=== PATIENT | female | born 1980 | race American Indian/Alaskan Native ===

== ENCOUNTER 2019-03-18 16:02 | Emergency (ER) | payer OTHER ==
--- NOTE | 2019-03-18 16:24 | Event Note ---
ED Screening Note Date of service: 03/18/19 Time: 16:22 ED Screening Note: 38 y o female presents to ED cc of depression and no appetite vaginal bleed only 3 days unsure if cycle pmh of post depression states under a lot of stress This initial assessment/diagnostic orders/clinical plan/treatment(s) is/are subject to change based on patients health status, clinical progression and re- assessment by fellow clinical providers in the ED. Further treatment and workup at subsequent clinical providers discretion. Patient/guardian urged not to elope from the ED as their condition may be serious if not clinically assessed and managed. Initial orders include:
[2019-03-18 18:13] LABS: Bilirubin,Urine NEG (Negative); Blood,Urine NEG (Negative); Color,Urine Straw (Yellow); Protein,Urine <15 mg/dL mg/dL (Negative); Urobilinogen,Urine < 2.0 mg/dL (<2.0); WBC,Urine < 1.0 /HPF (0.0-6.0)
[2019-03-18 18:14] LABS: Amphetamine Screen,Urine PRESUMPTIVE NEGATIVE; Benzodiazepines Screen,Urine PRESUMPTIVE NEGATIVE; Cannabinoid Screen,Urine PRESUMPTIVE NEGATIVE; Cocaine Screen,Urine PRESUMPTIVE NEGATIVE; Methadone Screen,Urine PRESUMPTIVE NEGATIVE; Opiate Screen,Urine PRESUMPTIVE NEGATIVE
[2019-03-18 18:16] LABS: HCG Qualitative,Urine Negative (Negative)
[2019-03-18 18:30] VITALS: BP 126/80
[2019-03-18 19:16] LABS: Basophils % (Auto) 0.7 % (0.0-1.8); Eosinophils % (Auto) 0.3 % (0.0-4.3); Hematocrit 33.6 % (30.3-42.9); Hemoglobin 10.9 gm/dl (10.1-14.3); Lymphocytes # (Auto) 0.7 K/mm3 (1.2-5.4); Lymphocytes % (Auto) 21.9 % (13.4-35.0); Mean Corpuscular HGB Conc 33 % (30-34); Mean Corpuscular Volume 83 fl (79-97); Monocytes # (Auto) 0.2 K/mm3 (0.0-0.8); Monocytes % (Auto) 5.7 % (0.0-7.3); Platelet Count 208 K/mm3 (140-440); Red Blood Count 4.03 M/mm3 (3.65-5.03); Red Cell Distribution Width 19.9 % (13.2-15.2)
[2019-03-18 19:22] LABS: BUN/Creatinine Ratio 13; Blood Urea Nitrogen 10 mg/dL (7-17); Calcium 9.8 mg/dL (8.4-10.2); Hemolysis Index 14
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
[2019-03-19] MEDS ORDERED: ONDANSETRON 4 MG/2 ML INJ ONE (13:47)
[2019-03-19] MEDS ORDERED: LORazepam 2 MG/ML VIAL ONE (14:07)
== END 2019-03-18 19:58 | disposition home or self-care (01) ==
LOC: ED 16:02
DX: F32.9 Major depressive disorder, single episode, unspecified (principal); R63.0 Anorexia; R11.0 Nausea; F17.200 Nicotine dependence, unspecified, uncomplicated; Z79.899 Other long term (current) drug therapy; Z88.8 Allergy status to other drugs, medicaments and biological substances
CPT/HCPCS: 36415; 80048; 80307; 80320; 81001; 81025; 85025; G0480; J2060; J2405

== ENCOUNTER 2020-03-19 11:02 | Emergency (ER) | payer SELFPAY ==
--- NOTE | 2020-03-19 11:12 | Emergency Department Report ---
Blank Doc - Documentation Documentation: 39-year-old female that presents with decreased appetite, dizziness, and gener alized weakness. This initial assessment/diagnostic orders/clinical plan/treatment(s) is/are subject to change based on patient's health status, clinical progression and re- assessment by fellow clinical providers in the ED. Further treatment and workup at subsequent clinical providers discretion. Patient/guardians urged not to elope from the ED as their condition may be serious if not clinically assessed and managed. Initial orders include: 1- Patient sent to [facility] for further evaluation and treatment 2- labs 3- UA
[2020-03-19 11:13] VITALS: BP 113/56
[2020-03-19] MEDS ORDERED: IBUPROFEN 800 MG TAB PO ONE (12:20)
--- NOTE | 2020-03-19 12:22 | Emergency Department Report ---
ED General Adult HPI - General Chief complaint: Weakness Stated complaint: DEHYDRATED PUI?: No Time Seen by Provider: 03/19/20 11:11 Source: patient Mode of arrival: Ambulatory Limitations: No Limitations - History of Present Illness Initial comments: Patient is a 39-year-old -[place] female who comes to the ER today com plaining of loss of appetite for 4 days and feeling dehydrated. She says she has been working a lot and has had to call out of work for the last 3 days. She states that she is not sleeping well. She denies any depression. She denies HI or SI. She is on no home medications and has no primary care doctor. On initial exam patient is emphatic that she needs IV fluids. However she does not have any tachycardia or hypotension. She has no fever or chills. She denies cough. She denies exposure to COVID-19. Patient repeatedly states that she wants IV fluids. However, she refuses to give urine or to allow phlebotomy to draw her labs. She states usually when I come in I just get IV fluids and leave. - Related Data Previous Rx's Medication Instructions Recorded Last Taken Type Acyclovir [Zovirax Cap] 200 mg PO 5XD 10 Days cap 05/05/13 Unknown Rx Ondansetron [Zofran Odt] 4 mg PO Q8HR PRN #14 tab.rapdis 03/18/19 Unknown Rx Allergies Allergy/AdvReac Type Severity Reaction Status Date / Time medroxyprogesterone acetate Allergy Rash Verified 03/19/20 11:09 [From Depo-Provera] ED Review of Systems ROS: Stated complaint: DEHYDRATED Other details as noted in HPI Comment: All other systems reviewed and negative ED Past Medical Hx - Past Medical History Previous Medical History?: Yes Additional medical history: PRE DIABETIC - Surgical History Past Surgical History?: Yes Additional Surgical History: C section - Family History Family history: no significant - Social History Smoking Status: Current Every Day Smoker Substance Use Type: None - Medications Home Medications: Home Medications Medication Instructions Recorded Confirmed Last Taken Type Acyclovir [Zovirax Cap] 200 mg PO 5XD 10 Days cap 05/05/13 03/18/19 Unknown Rx Ondansetron [Zofran Odt] 4 mg PO Q8HR PRN #14 tab.rapdis 03/18/19 Unknown Rx ED Physical Exam - General Limitations: No Limitations General appearance: alert, in no apparent distress - Head Head exam: Present: atraumatic, normocephalic - Eye Eye exam: Present: normal appearance - ENT ENT exam: Present: mucous membranes moist - Neck Neck exam: Present: normal inspection - Respiratory Respiratory exam: Present: normal lung sounds bilaterally. Absent: respiratory distress - Cardiovascular Cardiovascular Exam: Present: regular rate, normal rhythm. Absent: systolic murmur, diastolic murmur, rubs, gallop - GI/Abdominal GI/Abdominal exam: Present: soft, normal bowel sounds - Extremities Exam Extremities exam: Present: normal inspection - Back Exam Back exam: Present: normal inspection - Neurological Exam Neurological exam: Present: alert, oriented X3 - Psychiatric Psychiatric exam: Present: normal affect, normal mood - Skin Skin exam: Present: warm, dry, intact, normal color. Absent: rash ED Course Vital Signs 03/19/20 11:11 Temperature 98.0 F Pulse Rate 86 Respiratory 22 Rate Blood Pressure 113/56 O2 Sat by Pulse 97 Oximetry - Reevaluation(s) Reevaluation #1: 03/19/20 12:54 Nurses have informed me that patient has eloped Critical care attestation.: If time is entered above; I have spent that time in minutes in the direct care of this critically ill patient, excluding procedure time. ED Disposition Clinical Impression: Dehydration Disposition: Z-07 ELOPED Is pt being admited?: No Does the pt Need Aspirin: No Condition: Stable Time of Disposition: 12:52
== END 2020-03-19 12:50 | disposition left against medical advice (07) ==
LOC: ED 11:02
DX: E86.0 Dehydration (principal); F17.200 Nicotine dependence, unspecified, uncomplicated; Z79.899 Other long term (current) drug therapy
CPT/HCPCS: 99281